=== PATIENT | male | born 1990 | race Caucasian/White ===

== ENCOUNTER 2016-07-26 19:21 | Emergency (ER) | payer SELFPAY ==
[2016-07-26] MEDS ORDERED: Ketorolac Tromethamine 60 MG/2 ML VIAL ONE (19:46)
[2016-07-26] MEDS ORDERED: Adacel (T-DAP) 0.5 ML VIAL ONE (19:46)
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
== END 2016-07-26 20:00 | disposition home or self-care (01) ==
LOC: BURERS 19:21
DX: S40.022A Contusion of left upper arm, initial encounter (principal); Z72.0 Tobacco use; X58.XXXA Exposure to other specified factors, initial encounter
CPT/HCPCS: 90471; 90715; 96372; J1885

== ENCOUNTER 2016-10-08 20:56 | Emergency (ER) | payer SELFPAY ==
[2016-10-08] MEDS ORDERED: HYDROcodone/Acetaminophen 10/325 mg Tablet ONE (22:16)
[2016-10-08] MEDS ORDERED: Amoxicillin 125 mg/5 ml Oral Suspension ONE (22:16)
[2016-10-08] MEDS ORDERED: AMOXicillin 250 MG CAP ONE (22:18)
== END 2016-10-08 22:19 | disposition home or self-care (01) ==
LOC: BURERS 20:56
DX: K02.9 Dental caries, unspecified (principal); F17.200 Nicotine dependence, unspecified, uncomplicated
CPT/HCPCS: 99282

== ENCOUNTER 2017-02-12 11:43 | Emergency (ER) | payer SELFPAY ==
[2017-02-12] MEDS ORDERED: AMOXicillin 250 MG CAP ONE (11:56)
[2017-02-12] MEDS ORDERED: HYDROcodone/Acetaminophen 10/325 mg Tablet ONE (11:56)
== END 2017-02-12 12:03 | disposition home or self-care (01) ==
LOC: BURERS 11:43
DX: K08.89 Other specified disorders of teeth and supporting structures (principal); F17.210 Nicotine dependence, cigarettes, uncomplicated
CPT/HCPCS: 99282

== ENCOUNTER 2018-05-09 20:04 | Emergency (ER) | payer SELFPAY ==
[2018-05-09] MEDS ORDERED: Ketorolac Tromethamine 60 MG/2 ML VIAL ONE (20:15)
[2018-05-09] MEDS ORDERED: Ibuprofen 200 MG TAB ONE (20:16)
== END 2018-05-09 20:22 | disposition home or self-care (01) ==
LOC: BURERS 20:04
DX: J11.1 Influenza due to unidentified influenza virus with other respiratory manifestations (principal); F17.210 Nicotine dependence, cigarettes, uncomplicated
CPT/HCPCS: 99283; J1885